=== PATIENT | male | born 1990 | race Caucasian/White ===

== ENCOUNTER 2017-07-31 19:41 | Emergency (ER) | payer BC, MEDICAID, OTHER ==
[~2017-07-31] VITALS: Ht 175.3 cm; Wt 97.5 kg
[2017-07-31 19:50] VITALS: BP 136/92
== END 2017-07-31 22:11 | disposition home or self-care (01) ==
LOC: ER 19:56
DX: S92.414A Nondisplaced fracture of proximal phalanx of right great toe, initial encounter for closed fracture (principal); W20.8XXA Other cause of strike by thrown, projected or falling object, initial encounter; Y93.89 Activity, other specified; Y92.89 Other specified places as the place of occurrence of the external cause; Y99.0 Civilian activity done for income or pay
CPT/HCPCS: 73660; 99284; A4606; Z7610

== ENCOUNTER 2020-06-06 18:12 | Emergency (ER) | payer BC, OTHER ==
[~2020-06-06] VITALS: Ht 175.3 cm; Wt 103.0 kg
[2020-06-06] MEDS ORDERED: DEXAMETHASONE SOD PHOSPHATE 10 MG/ML VIAL ONE (18:49)
[2020-06-06] MEDS ORDERED: KETOROLAC TROMETHAMINE INJ 30 MG/ML VIAL ONE (18:50)
[2020-06-06] MEDS ORDERED: KETOROLAC TROMETHAMINE INJ 30 MG/ML VIAL IV ONE (19:00)
[2020-06-06] MEDS ORDERED: IV NS 0.9% 1,000 ML BAG IV ONE (19:00)
[2020-06-06] MEDS ORDERED: DEXAMETHASONE SOD PHOSPHATE 10 MG/ML VIAL IV ONE (19:00)
[2020-06-06] MEDS ORDERED: ACETAMINOPHEN 160 MG/5 ML PO ONE (19:00)
--- NOTE | 2020-06-06 19:09 | NUR ---
fever x 2 days, sore throat, -covid 19 yesterday. PT AAOX4, VSS. RR EVEN & UNLABORED. DENIES CP, SOB, DIZZINESS, N/V AT THIS TIME. PT SEEN & EVAL'D BY ROSAS POWELL. MEDICATED ORDERED, PT REESE WELL. WILL CONT TO MONITOR.
[2020-06-06] MEDS ORDERED: ACETAMINOPHEN 160 MG/5 ML ONE ×2 (19:15→19:27)
--- NOTE | 2020-06-06 19:21 | NUR ---
called pharmacy regarding tylenol order. Needed 1 more 160mg/5ml.
[2020-06-06 19:26] LABS: ALBUMIN 3.7 g/dL (3.4-5.0); BILIRUBIN,DIRECT 0.2 mg/dL (0.0-0.2); BILIRUBIN,TOTAL 0.6 mg/dL (0.2-1.0); CREATININE 1.2 mg/dL (0.6-1.3); POTASSIUM 3.7 mmol/L (3.5-5.1); TOTAL PROTEIN, SERUM 8.1 g/dL (6.4-8.2)
[2020-06-06] MEDS ORDERED: AMOX-430 PO (19:34)
[2020-06-06 20:16] LABS: BASOPHILS % (AUTO) 0.4 % (0.0-2.0); EOSINOPHILS % (AUTO) 0.3 % (0.0-6.0); HEMATOCRIT 46 % (39-51); HEMOGLOBIN 15.5 g/dL (13.5-17.5); LYMPHOCYTES # (AUTO) 2.4 /CMM (0.8-4.8); LYMPHOCYTES % (AUTO) 18.2 % (20.0-44.0); MEAN CORPUSCULAR HGB CONC 34 g/dl (31.0-36.0); MEAN CORPUSCULAR VOLUME 90 fL (80-96); MONOCYTES # (AUTO) 1.7 /CMM (0.1-1.30); MONOCYTES % (AUTO) 12.6 % (2.0-12.0); NEUTROPHILS # (AUTO) 9.1 /CMM (1.8-8.9); NEUTROPHILS % (AUTO) 68.5 % (43.0-81.0); PLATELET COUNT (AUTO) 227 /CMM (150-450); RED BLOOD CELL COUNT(AUTO) 5.04 MIL/uL (4.5-6.0); WHITE BLOOD COUNT (AUTO) 13.3 K/uL (4.3-11.0)
--- NOTE | 2020-06-06 20:44 | NUR ---
IV removed. Catheter intact and site benign. Pressure and 4x4 applied to site. No bleeding noted. Patient discharged to home in stable condition. Written and verbal after care instructions given. Patient verbalizes understanding of instruction and RX. Pt denies pain, able to swallow. vss.
[2020-06-06 20:45] VITALS: BP 127/72
== END 2020-06-06 20:45 | disposition home or self-care (01) ==
LOC: ER 18:12
DX: J03.90 Acute tonsillitis, unspecified (principal); R74.01 Elevation of levels of liver transaminase levels; Z98.890 Other specified postprocedural states; Z79.899 Other long term (current) drug therapy
CPT/HCPCS: 36415; 71045; 80048; 80076; 85025; 87070; 87077; 87880; 96361; 96374; 96375; 99284; J1100; J1885; J7030; 86403-TC

== ENCOUNTER 2021-05-31 21:29 | Emergency (ER) | payer OTHER ==
[~2021-05-31] VITALS: Ht 177.8 cm; Wt 95.3 kg
[~2021-05-31 21:29] MED LIST: AMOX-430 PO
[2021-05-31 22:46] VITALS: BP 143/95
[2021-05-31] MEDS ORDERED: IBUPROFEN 400 MG TABLET PO ONE (23:30)
[2021-05-31] MEDS ORDERED: IBUPROFEN 400 MG TABLET ONE (23:32)
== END 2021-05-31 23:50 | disposition home or self-care (01) ==
LOC: ER 21:38
DX: G44.319 Acute post-traumatic headache, not intractable (principal); F07.81 Postconcussional syndrome; Z87.74 Personal history of (corrected) congenital malformations of heart and circulatory system; Z87.39 Personal history of other diseases of the musculoskeletal system and connective tissue; Z79.899 Other long term (current) drug therapy
CPT/HCPCS: 70450-TC

== ENCOUNTER 2021-10-25 10:16 | Emergency (ER) | payer OTHER ==
[~2021-10-25] VITALS: Ht 175.3 cm; Wt 82.6 kg
[2021-10-25 10:22] VITALS: BP 139/82
--- NOTE | 2021-10-25 10:28 | NUR ---
DR GOLDEN AT BEDSIDE FOR EVAL
[2021-10-25] MEDS ORDERED: PENICILLIN G BENZATHINE 2.4 MMU/4 ML ML IM ONE ×2 (10:30→10:39)
[2021-10-25] MEDS ORDERED: DEXAMETHASONE SOLN 5 MG/5 ML UDC PO ONE (10:30)
[2021-10-25] MEDS ORDERED: DEXAMETHASONE SOLN 5 MG/5 ML UDC ONE (10:38)
--- NOTE | 2021-10-25 10:54 | NUR ---
BICILLIN L-A GIVEN IM ON LEFT GLUTEAL MUSCLE DEEP IM
--- NOTE | 2021-10-25 11:24 | NUR ---
Patient discharged to home in stable condition. Written and verbal after care instructions given. Patient verbalizes understanding of instruction.
== END 2021-10-25 11:25 | disposition home or self-care (01) ==
LOC: ER 10:21
DX: J02.9 Acute pharyngitis, unspecified (principal); Z98.890 Other specified postprocedural states
CPT/HCPCS: 99283; 96372; J0558; J8540